=== PATIENT | female | born 1960 | race American Indian/Alaskan Native ===

== ENCOUNTER 2020-11-26 09:32 | Inpatient (IN) | payer OTHER, SELFPAY ==
[2020-12-01 18:39] VITALS: BP 107/60
== END 2020-12-01 19:10 | disposition home or self-care (01) | DRG 177 ==
LOC: ED 09:32 → 3A 12:48
PROVIDERS: ADMIT Internal Medicine; ATTEND Internal Medicine
PROC: XW033E5 Introduction of Remdesivir Anti-infective into Peripheral Vein, Percutaneous Approach, New Technology Group 5 (ICD-10-PCS; principal; 2020-11-27)
DX: U07.1 COVID-19 (principal); A41.9 Sepsis, unspecified organism; J96.01 Acute respiratory failure with hypoxia; J12.82 Pneumonia due to coronavirus disease 2019; R65.11 Systemic inflammatory response syndrome (SIRS) of non-infectious origin with acute organ dysfunction; E44.1 Mild protein-calorie malnutrition; I10 Essential (primary) hypertension; Z82.49 Family history of ischemic heart disease and other diseases of the circulatory system; Z68.30 Body mass index [BMI] 30.0-30.9, adult; E66.9 Obesity, unspecified
CPT/HCPCS: 36415; 71045; 80048; 80053; 80076; 82728; 82947; 83036; 83615; 84145; 85007; 85025; 85379; 85610; 85730; 86140; 87040; 94760; G0378; J0456; J0696; J1100; J1650; J7030; J7050; U0003